=== PATIENT | female | born 1950 | race Caucasian/White ===

== ENCOUNTER → 2016-10-02 | Outpatient (CLI) | payer BC ==
[~2016-10-02] MED LIST: ACETAMINOPHEN PO; ADVIL200 M3 PO; AMBIEN PO; ASPIRIN81 MG PO; BENADRYL25 M3 PO; COREG3.125 MG PO; DAPTOMYCIN IV; DILAUDID PO; DIOVAN PO; FLAGYL PO; FLONASE 0.05% N16 G1; FOLIC ACID1 MG PO; HUMIRA40 MG/0.1 SQ; LORTAB 7.5-3251 EACH PO; METHOTREXATE2.5 MG PO; MULTIPLE VITAMI1 T10 PO; NEURONTIN300 MG PO; NORVASC PO; PERCOCET10 PO; PERCOLONE5 MG PO; PHENERGAN12.5 MG PO; PLAQUENIL200 MG PO; PREMARIN PO; PROBIOTIC1 EAC1 PO; RIFAMPIN300 M1 PO; SENOKOT S1 TAB PO; SERTRALINE HCL50 M1 PO; VALSARTAN-HCTZ1 EAC2 PO; VIIBRYD40 MG PO; ZOFRAN ODT4 MG PO; ZYRTEC10 M4 PO; [UNRECOGNIZED DRUG - OTHER]
[2016-10-02 07:43] LABS: BASOPHIL% 0.8 % (0-2.5); EOSINOPHIL# 0.3 X10e3 (0-0.7); EOSINOPHIL% 4.5 % (0.0-7.0); HEMATOCRIT 37.6 % (35.0-45.0); HEMOGLOBIN 12.4 gm/dL (12.0-16.0); LYMPHOCYTE# 2.5 X10e3 (1.0-3.5); LYMPHOCYTE% 43.7 % (17.0-45.0); MEAN CORPUSCULAR HEMOGLOBIN 30.9 PG (28-34); MEAN CORPUSCULAR HGB CONC 32.9 g/dL (30-36); MEAN PLATELET VOLUME 8.2 FL (6.5-11.5); MONOCYTE# 0.5 X10e3 (0-1.0); MONOCYTE% 9.2 % (3.0-12.0); NEUTROPHIL# 2.4 X10e3 (1.5-7.1); NEUTROPHIL% 41.8 % (40-75); PLATELET COUNT 235 X10e3 (140-420); WHITE BLOOD COUNT 5.7 X10e3 (4.0-10.5)
[2016-10-02 07:45] LABS: DIFF IND NO
[2016-10-02 08:19] LABS: ALBUMIN SERUM 4.2 g/dL (3.5-5.0); BILIRUBIN,TOTAL 0.7 mg/dL (0.2-2.0); BUN/CREATININE RATIO 21.81; CREATININE SERUM 1.1 mg/dL (0.6-1.4); POTASSIUM 3.7 mmol/L (3.5-5.1); PROTEIN TOTAL SERUM 7.2 g/dL (6.0-8.3)
== END | disposition home or self-care (01) ==
LOC: CLAB 06:53
PROVIDERS: Nurse Practitioner
DX: M06.09 Rheumatoid arthritis without rheumatoid factor, multiple sites (principal)
CPT/HCPCS: 36415; 80053; 85025; 85652; 86140

== ENCOUNTER → 2016-10-02 | Outpatient (CLI) | payer BC ==
[2016-10-02 08:18] LABS: BLOOD UREA NITROGEN 24 mg/dL (9-23); CALCIUM SERUM 9.8 mg/dL (8.4-10.2); CARBON DIOXIDE 29 mmol/L (22-31); CHLORIDE 102 mmol/L (100-111); CREATININE SERUM 0.8 mg/dL (0.6-1.4); GLOM FILT RATE Estimated ABOVE60 mL/min (>60); GLUCOSE FASTING 85 mg/dL (70-110); POTASSIUM 3.6 mmol/L (3.5-5.1); SODIUM 138 mmol/L (135-145)
== END | disposition home or self-care (01) ==
LOC: CLAB 06:50
PROVIDERS: Internal Medicine Nephrology
DX: I10 Essential (primary) hypertension (principal)
CPT/HCPCS: 80048

== ENCOUNTER → 2016-10-14 | Outpatient (CLI) | payer BC ==
--- NOTE | ~2016-10-14 | MR134 ---
[facility] A Service of [facility] RADIOLOGY TEXT RESULTS PATIENT: FREEMAN HE LOCATION: [facility] : 51 UNIT #: [id number] AGE: [address]: TAMMI DUARTE APRN SEX: F ORDER DR: [id number] [facility] [address] [place], [place] [address] [id number] O MR#: [id number] Acc #: [id number] NAME: FREEMAN HE : 1950 SEX: F STUDY DATE/TIME: 10/14/2016 19:22 UNIT: [facility] ROOM: STUDY DESCRIPTION: MR MRA Neck Wo Contrast Attending Physician: Tammi Duarte Aprn Ordering Physician: Tammi Duarte Aprn Primary Care Physician: Tamanna Dia M.D. MRI CENTER REPORT This report is preliminary unless electronic signature is present. EXAM MR angiogram of the neck without contrast dated 10/14/2016 COMPARISON MRI brain and MRA head dated 10/14/2016 HISTORY Imbalance, falls and dizziness. Patient fell twice last year and had concussions. History of skin cancer in the face 2016. TECHNIQUE Source and 3-D reconstruction MIP images of the neck major arteries were obtained without contrast. FINDINGS The left vertebral artery arises either from the left subclavian artery at its origin or from the arch itself between the left common carotid artery and the left subclavian artery. Visualized bilateral vertebral arteries demonstrate expected caliber and flow with some small changes in the course between the 2 sides. Bilateral visualized common, internal and external carotid arteries demonstrate expected course, caliber and flow. No significant stenosis per NASCET criteria. No aneurysm or AVM is seen. IMPRESSION 1. No hemodynamically flow-limiting significant stenosis and bilateral internal carotid artery bulbs per NASCET criteria. 2. No aneurysm or AVM. Dictated by... Robert Fontenot M.D. THIS IS AN ELECTRONICALLY VERIFIED REPORT Robert Fontenot M.D. at 10/15/2016 4:26 PM [facility] A Service of [facility] RADIOLOGY TEXT RESULTS PATIENT: FREEMAN HE LOCATION: [facility] : 51 UNIT #: [id number] AGE: [address]: TAMMI DUARTE APRN SEX: F ORDER DR: CPR/to TD: 10/15/2016 11:13 JOB #: [id number] MRI CENTER REPORT Page 1 of 1 COPY
--- NOTE | ~2016-10-14 | MR17 ---
[facility] A Service of [facility] RADIOLOGY TEXT RESULTS PATIENT: FREEMAN HE LOCATION: [facility] : 51 UNIT #: [id number] AGE: [address]: TAMMI DUARTE APRN SEX: F ORDER DR: [id number] [facility] [address] [place], [place] [address] [id number] O MR#: [id number] Acc #: [id number] NAME: FREEMAN HE : 1950 SEX: F STUDY DATE/TIME: 10/14/2016 19:22 UNIT: [facility] ROOM: STUDY DESCRIPTION: MR Brain WWo Contrast Attending Physician: Tammi Duarte Aprn Ordering Physician: Tammi Duarte Aprn Primary Care Physician: Tamanna Dia M.D. MRI CENTER REPORT This report is preliminary unless electronic signature is present. EXAM MRI of the brain without and with contrast, 10/14/2016. COMPARISON MRA head and neck, 10/14/2016; MRI of the brain with internal auditory canals, 02/14/2016. HISTORY Imbalance. Falls. Dizziness. Patient fell twice last year and had concussions. History of skin cancer on the face in 2016. TECHNIQUE Multisequence, multiplanar imaging of the brain was obtained with and without contrast. GFR measured greater than 60. 19 mL of MultiHance was administered intravenously. FINDINGS No acute stroke, enhancing mass, mass effect, midline shift, or hydrocephalus. Scattered few hyperintense T2 signal lesions are noted in the subcortical white matter, periventricular white matter, and superior aspect of bilateral basal ganglia. Vascular flow voids of the major cerebral arteries and dural venous sinuses are not obstructed in these thicker slices. Paranasal sinuses, orbits with the ocular structures, and mastoids do not demonstrate any significant abnormality, except for mild right mastoid mucosal thickening. Thick slices through the sella with the pituitary gland, pineal region, are unremarkable. Mild degenerative changes are in the cervical spine. Postcontrast sequences do not demonstrate any significant abnormality. IMPRESSION 1. Scattered nonenhancing, nonspecific, few hyperintense T2 signal lesions are noted in the brain, likely related to mild chronic [facility] A Service of [facility] RADIOLOGY TEXT RESULTS PATIENT: FREEMAN HE [facility] UNIT #: [id number] AGE: [address]: TAMMI DUARTE APRN SEX: F ORDER DR: microvascular ischemic change or migraine, based on age and statistics. 2. No acute stroke, enhancing mass, hydrocephalus, or midline shift. Dictated by... Robert Fontenot M.D. THIS IS AN ELECTRONICALLY VERIFIED REPORT Robert Fontenot M.D. at 10/15/2016 4:23 PM CPR/eliecer TD: 10/15/2016 11:21 JOB #: [id number] MRI CENTER REPORT Page 1 of 1 COPY
--- NOTE | ~2016-10-14 | MR122 ---
[facility] A Service of [facility] RADIOLOGY TEXT RESULTS PATIENT: FREEMAN HE LOCATION: [facility] : 51 UNIT #: [id number] AGE: [address]: TAMMI DUARTE APRN SEX: F ORDER DR: [id number] [facility] [address] [place], [place] [address] [id number] O MR#: [id number] Acc #: [id number] NAME: FREEMAN HE : 1950 SEX: F STUDY DATE/TIME: 10/14/2016 19:22 UNIT: [facility] ROOM: STUDY DESCRIPTION: MR MRA Head Wo Contrast Attending Physician: Tammi Duarte Aprn Ordering Physician: Tammi Duarte Aprn Primary Care Physician: Tamanna Dia M.D. MRI CENTER REPORT This report is preliminary unless electronic signature is present. EXAM Intracranial MR angiogram HISTORY Balance disturbance with dizziness and falling. 2 falls over the past year. TECHNIQUE MR angiographic imaging was performed from the skull base up through the pit[place]'s point of [place]. FINDINGS In the posterior recirculation of vertebral arteries are codominant distally and the basilar artery is widely patent. In the anterior circulation there is no evidence of carotid siphon stenosis on either side. There is no evidence of aneurysm or vascular malformation. No severe intracranial stenosis is seen. IMPRESSION Negative MR angiogram. Dictated by... Efrain Del Real M.D. THIS IS AN ELECTRONICALLY VERIFIED REPORT Efrain Del Real M.D. at 10/15/2016 4:57 PM Tate TD: 10/15/2016 10:37 JOB #: [id number] MRI CENTER REPORT Page 1 of 1 COPY
== END | disposition home or self-care (01) ==
LOC: CMRI 19:01
DX: R42 Dizziness and giddiness (principal); R26.89 Other abnormalities of gait and mobility; G93.89 Other specified disorders of brain
CPT/HCPCS: 70544; 70547; 70553; A9577

== ENCOUNTER → 2017-03-09 | Outpatient (CLI) | payer BC, MEDICARE ==
--- NOTE | ~2017-03-09 | MY29 ---
[facility] A Service of [facility] RADIOLOGY TEXT RESULTS PATIENT: FREEMAN HE LOCATION: [facility] : 51 UNIT #: [id number] AGE: [address]: Tamanna Dia MD SEX: F ORDER DR: [id number] [facility] [address] [place], [place] [address] [id number] O MR#: [id number] Acc #: [id number] NAME: FREEMAN HE : 1950 SEX: F STUDY DATE/TIME: 03/09/2017 13:36 UNIT: [facility] ROOM: STUDY DESCRIPTION: MY MAXIMUS SCREENING W/ CAD BILAT Attending Physician: Tamanna Dia M.D. Referring Physician: Tamanna Dia M.D. Ordering Physician: Tamanna Dia M.D. Primary Care Physician: Tamanna Dia M.D. MEDICAL IMAGING REPORT This report is preliminary unless electronic signature is present EXAM Bilateral digital screening mammogram with CAD COMPARISON March 07, 2016; December 14, 2014; August 26, 2012; July 04, 2011; May 07, 2009; April 11, 2008 and January 19, 2007. INDICATION Breast cancer screening. 67-year-old female who reports a daughter with breast cancer. Breast cancer screening. FINDINGS There are scattered fibroglandular densities. There are no suspicious findings in the left breast. In the superior posterior third of the right breast there is an asymmetry measuring 8 mm x 10 mm which is favored to represent an axillary lymph node. This appears to have enlarged from comparison and could represent an abnormal lymph node of uncertain etiology. IMPRESSION 1. No mammographic evidence of malignancy in the left breast. 2. Right breast asymmetry, possibly an abnormal right axillary lymph node. Further evaluation with spot magnification MLO view and full field ML view is recommended, possibly followed by right breast ultrasound if this cannot be shown to represent a normal lymph node. Patients over the age of 40 are entered into a reminder system with target due date for the next mammogram. A result letter will also be sent to the patient. BIRADS: 0 Incomplete; need additional imaging evaluation and/or prior mammograms for comparison. [facility] A Service of [facility] RADIOLOGY TEXT RESULTS PATIENT: FREEMAN HE LOCATION: [facility] #: [id number] : 51 UNIT #: [id number] AGE: [address]: Tamanna Dia MD SEX: F ORDER DR: Dictated by... Al Loyd M.D. THIS IS AN ELECTRONICALLY VERIFIED REPORT Al Loyd M.D. at 03/17/2017 2:41 AM RANDALL/ryann TD: 03/10/2017 00:59 JOB #: [id number] MEDICAL IMAGING REPORT Page 1 of 1 COPY
== END | disposition home or self-care (01) ==
LOC: CWCC 12:53
DX: Z12.31 Encounter for screening mammogram for malignant neoplasm of breast (principal); N64.89 Other specified disorders of breast; Z80.3 Family history of malignant neoplasm of breast
CPT/HCPCS: G0202

== ENCOUNTER → 2017-03-18 | Outpatient (CLI) | payer BC, MEDICARE ==
--- NOTE | ~2017-03-18 | MY25 ---
[facility] A Service of [facility] RADIOLOGY TEXT RESULTS PATIENT: FREEMAN HE LOCATION: [facility] : 51 UNIT #: [id number] AGE: [address]: Tamanna Dia MD SEX: F ORDER DR: [id number] [facility] [address] [place], [place] [address] [id number] O MR#: [id number] Acc #: [id number] NAME: FREEMAN HE. : 1950 SEX: F STUDY DATE/TIME: 03/18/2017 9:40 UNIT: [facility] ROOM: STUDY DESCRIPTION: [facility] W/ CAD UNI RT Attending Physician: Tamanna Dia M.D. Referring Physician: Tamanna Dia M.D. Ordering Physician: Tamanna Dia M.D. Primary Care Physician: Tamanna Dia M.D. MEDICAL IMAGING REPORT This report is preliminary unless electronic signature is present EXAM Right digital diagnostic mammogram COMPARISON Screening mammograms dated 03/09/2017, 03/07/2016, 12/14/2014, 08/26/2012, 07/04/2011, 05/07/2009, 04/11/2008, 01/19/2007 INDICATIONS 67-year-old female with a right breast asymmetry in the superior posterior third of the right breast only seen on MLO view, thought to possibly reflect adenopathy. Additional imaging evaluation was recommended. FINDINGS Full field ML and axillary tail views were obtained in addition to spot compression MLO views. Asymmetry persists and either is a part of a lymph node with focal cortical thickening or may appear more focally dense because of overlap of two normal lymph nodes. The dominant lymph node may measure up to as much as 2.5 cm in length and the finding of initial concern is at the inferior aspect of this lymph node, again, either representing a separate lymph node or part of this larger lymph node, which may be focally thickened. The area of concern measures up to 1.1 cm x 1.1 cm. Sonographic evaluation was performed to further characterize this finding and this demonstrates morphologically normal lymph node measuring 1.1 cm x 0.8 cm x 0.7 cm with normal cortical thickness of 2 mm. This is either immediately adjacent to or attached to a separate large normal lymph node measuring approximately 2 cm in length by 0.6 cm x 0.7 cm, with normal cortical thickness and preserved fatty hilum. This is best appreciated on cine imaging. These two benign lymph nodes correspond to the findings on mammography and are benign. Other morphologically normal lymph nodes are noted in the right axilla. [facility] A Service of [facility] RADIOLOGY TEXT RESULTS PATIENT: FREEMAN HE LOCATION: [facility] : 51 UNIT #: [id number] AGE: [address]: Tamanna Dia MD SEX: F ORDER DR: IMPRESSION The finding of initial concern is consistent with two adjacent benign morphologically normal right axillary lymph nodes. There is no sonographic or mammographic evidence of malignancy and continued annual screen mammography is recommended. Patient was notified of these findings upon termination of today's exam. Patient's over the age of 40 are entered into a reminder system with target due date for the next mammogram. A result letter will be sent to the patient. BIRADS: 2 Benign findings. Dictated by... Al Loyd M.D. THIS IS AN ELECTRONICALLY VERIFIED REPORT Al Loyd M.D. at 03/24/2017 2:26 PM BLM/to TD: 03/18/2017 18:49 JOB #: [id number] MEDICAL IMAGING REPORT Page 1 of 1 COPY
--- NOTE | ~2017-03-18 | US24 ---
[facility] A Service of [facility] RADIOLOGY TEXT RESULTS PATIENT: FREEMAN HE LOCATION: [facility] : 51 UNIT #: [id number] AGE: [address]: Tamanna Dia MD SEX: F ORDER DR: [id number] [place] [id number] [facility] [place], [place] [address] [id number] O MR#: [id number] Acc #: [id number] NAME: FREEMAN HE : 1950 SEX: F STUDY DATE/TIME: 03/18/2017 10:02 UNIT: [facility] ROOM: STUDY DESCRIPTION: US Breast Unilateral Attending Physician: Tamanna Dia M.D. Referring Physician: Tamanna Dia M.D. Ordering Physician: Tamanna Dia M.D. Primary Care Physician: Tamanna Dia M.D. MEDICAL IMAGING REPORT This report is preliminary unless electronic signature is present EXAM Right breast ultrasound COMPARISON Right diagnostic mammogram on the same day as well as other mammograms dated March 09, 2017; March 07, 2016; December 14, 2014; August 26, 2012; July 04, 2011. INDICATION 67-year-old female with a right breast asymmetry incompletely imaged on screening mammography. Additional imaging evaluation was recommended to exclude possibility of adenopathy. FINDINGS/IMPRESSION Please see separately dictated report of right diagnostic mammography on the same date for full sonographic findings in the right breast as well as final impression and recommendations. Patients over the age of 40 are entered into a reminder system with target due date for the next mammogram. A result letter will also be sent to the patient. BIRADS: 2 Benign Finding Dictated by... Al Loyd M.D. THIS IS AN ELECTRONICALLY VERIFIED REPORT Al Loyd M.D. at 03/24/2017 4:13 PM Priti TD: 03/19/2017 12:47 JOB #: [id number] [facility] A Service of [facility] RADIOLOGY TEXT RESULTS PATIENT: FREEMAN HE LOCATION: [facility] #: [id number] : 51 UNIT #: [id number] AGE: [address]: Tamanna Dia MD SEX: F ORDER DR: MEDICAL IMAGING REPORT Page 1 of 1 COPY
== END | disposition home or self-care (01) ==
LOC: CMAM 09:00
DX: N64.89 Other specified disorders of breast (principal)
CPT/HCPCS: 76641; G0206

== ENCOUNTER → 2017-03-18 | Outpatient (CLI) | payer BC, MEDICARE ==
[2017-03-18 11:30] LABS: BASOPHIL% 0.8 % (0-2.5); EOSINOPHIL# 0.1 X10e3 (0-0.7); EOSINOPHIL% 3.5 % (0.0-7.0); HEMATOCRIT 34.4 % (35.0-45.0); HEMOGLOBIN 11.8 gm/dL (12.0-16.0); LYMPHOCYTE% 31.8 % (17.0-45.0); MEAN CELL VOLUME 96.8 FL (83-96); MEAN CORPUSCULAR HEMOGLOBIN 33.2 PG (28-34); MEAN CORPUSCULAR HGB CONC 34.2 g/dL (30-36); MEAN PLATELET VOLUME 7.3 FL (6.5-11.5); MONOCYTE# 0.2 X10e3 (0-1.0); MONOCYTE% 7.8 % (3.0-12.0); NEUTROPHIL# 1.8 X10e3 (1.5-7.1); NEUTROPHIL% 56.1 % (40-75); PLATELET COUNT 168 X10e3 (140-420); RED BLOOD COUNT 3.55 X10e (3.90-5.30); RED CELL DISTRIBUTION WIDTH 15.4 % (11.0-15.5); WHITE BLOOD COUNT 3.1 X10e3 (4.0-10.5)
[2017-03-18 11:39] LABS: DIFF IND NO
[2017-03-18 12:30] LABS: BILIRUBIN,TOTAL 1.3 mg/dL (0.2-2.0); CALCIUM SERUM 9.5 mg/dL (8.4-10.2); GLOM FILT RATE Estimated 58.7 mL/min (>60); POTASSIUM 4.1 mmol/L (3.5-5.1)
== END | disposition home or self-care (01) ==
LOC: CLAB 10:56
PROVIDERS: Nurse Practitioner
DX: M06.09 Rheumatoid arthritis without rheumatoid factor, multiple sites (principal)
CPT/HCPCS: 36415; 80053; 85025; 86140